=== PATIENT | male | born 1965 | race African-American/Black ===

== ENCOUNTER 2016-05-24 18:36 | Emergency (ER) | payer BC ==
[2016-05-24] MEDS ORDERED: ONDANSETRON 4 MG VIAL ONE (20:26)
[2016-05-24] MEDS ORDERED: DILAUDID 1 MG/ML AMP ONE (20:26)
[2016-05-24] MEDS ORDERED: ACETAMINOPHEN 325 MG TAB ONE (22:33)
[2016-05-24] MEDS ORDERED: CEFTRIAXONE 1 GM VIAL ONE (22:33)
[2016-05-24] MEDS ORDERED: LIDOCAINE 1% MDV 20 ML ONE (22:34)
[2016-05-24] MEDS ORDERED: KETOROLAC 60 MG/2 ML VIAL IM ONE (22:34)
[2016-05-24] MEDS ORDERED: NEB-ALBUTEROL 2.5 MG/3 ML INH ONE (22:35)
== END 2016-05-24 23:21 | disposition home or self-care (01) ==
LOC: ER 18:36
DX: J15.9 Unspecified bacterial pneumonia (principal)
CPT/HCPCS: 71020; 87804; 94640; 96372